=== PATIENT | male | born 1990 | race Two or more races ===

== ENCOUNTER 2021-06-26 08:21 | Emergency (ER) | payer SELFPAY ==
[2021-06-26 08:53] LABS: BASOPHIL 0.5 % (0-2); EOSINOPHIL 0.9 % (0-5); HGB 16.1 g/dl (13.2-18.0); MCH 29.4 pg (25.0-31.0); MCHC 31.6 g/dL (32.0-36.0); MCV 93.2 fL (78.0-100.0); MPV 10.2 fL (6.0-9.5); NEUTROPHIL 30.1 % (41-80); NRBC 0; PLT 261 K/uL (150-400); RBC 5.47 M/uL (4.70-6.00); WBC 12.1 K/uL (4.0-10.5)
[2021-06-26 08:54] LABS: LYMPHOCYTE 59.1 % (15-48)
[2021-06-26 09:13] LABS: ALBUMIN 4.3 g/dL (3.4-5.0); ALKALINE PHOSHATASE 61 U/L (46-116); ALT 50 U/L (16-63); AST 21 U/L (15-37); BILIRUBIN - TOTAL 0.4 mg/dL (0.2-1.0); BUN 17 mg/dL (7-18); BUN/CREAT RATIO (CALC) 18.9 RATIO; CHLORIDE 106 mmol/L (98-107); CO2 (BICARBONATE) 12 mmol/L (21-32); GLOBULIN (CALCULATION) 4.3 g/dL; GLUCOSE 157 mg/dL (74-106); POTASSIUM 3.9 mmol/L (3.5-5.1); TOTAL PROTEIN 8.6 g/dL (6.4-8.2)
== END 2021-06-26 12:53 | disposition home or self-care (01) ==
LOC: FER 08:21
PROVIDERS: Emergency Medicine
DX: G40.909 Epilepsy, unspecified, not intractable, without status epilepticus (principal); Z79.899 Other long term (current) drug therapy
CPT/HCPCS: 36415; 70450; 80053; 80164; 85025; G0480; J1953; J7030